=== PATIENT | male | born 1960 | race Caucasian/White ===

== ENCOUNTER 2024-02-03 08:58 | Inpatient (IN) ==
[2024-02-03 09:27] LABS: Hematocrit 49.4 % (38-53); Hemoglobin 16.2 g/dL (13.2-16.3); Mean Corpuscular Hgb Conc 32.7 g/dL (31-36); Mean Corpuscular Volume 91.6 fL (80-97); Mean Platelet Volume 8.3 fL (7.5-11.2); Platelet Count 352 10^3/uL (150-450); Red Blood Count 5.39 10^6/uL (4.06-5.63); Red Cell Distribution Width 14.2 % (12-17); White Blood Count 24.1 10^3/uL (3.6-10.2)
[2024-02-03 09:35] LABS: INR 1.23 (0.83-1.13)
[2024-02-03 10:03] LABS: Albumin 3.6 g/dL (3.2-5.2); Albumin/Globulin Ratio 1.2 (1-3); Calcium 8.5 mg/dL (8.6-10.3); Creatinine, Serum 0.7 mg/dL (0.67-1.17); Globulin 3.1 g/dL (2-4); Potassium 4.3 mmol/L (3.5-5.0); Total Bilirubin 0.9 mg/dL (0.2-1.0); Total Protein 6.7 g/dL (6.4-8.9); eGFR CKD-EPI 104.2 (>60)
[2024-02-03 10:26] LABS: ABS Basophils 0.1 10^3/uL (0.0-0.1); ABS Eosinophils 0.2 10^3/uL (0.0-0.5); ABS Lymphocytes 0.9 10^3/uL (1.0-4.8); ABS Monocytes 2.3 10^3/uL (0.0-1.1); ABS Neutrophils 20.5 10^3/uL (1.5-7.6); ABS Nucleated RBC 0.02 10^3/ul; Lymphocyte % 3.7 %; Nucleated Red Blood Cells % 0.1 %/100WBC (0.0-0.8)
[2024-02-03 10:54] LABS: High Sensitivity Troponin 1 Hr 6 pg/mL (<20)
[2024-02-03 11:20] LABS: Urine Appearance Clear; Urine Bilirubin Negative (Negative); Urine Blood Trace (Negative); Urine Color Light-Yellow; Urine Glucose 4+ (>=1000 mg/dL) (Negative); Urine Ketones 4+ (Negative); Urine Nitrite Negative (Negative); Urine Protein 1+ (>=30 mg/dL) (Negative); Urine Urobilinogen Negative (Negative)
[2024-02-03 11:41] LABS: Urine Bacteria Absent /HPF (Absent); Urine Red Blood Cell Trace(0-2/hpf) /HPF (0-Trace); Urine White Blood Cell Absent /HPF (0-Trace)
[2024-02-03] MEDS: NS 0.9% 1000 ml BAG 1,000 ML IV ONE ×3 (11:58→13:51)
[2024-02-03 12:09] LABS: Venous Bicarbonate HCO3 17.6 mmol/L (24-28)
[2024-02-03 12:38] LABS: PSA Screen Ultra Sensitive 2.07 ng/mL (0-4.000)
[2024-02-03 12:41] LABS: TSH Ultra Thyroid Stim Horm 1.63 mcIU/mL (0.34-5.60)
[2024-02-03] MEDS: Iodixanol (CONTRAST) 320 MG/ML 100 ML SDV IV ONE (14:27)
[2024-02-03 14:31] LABS: C Reactive Protein 308.38 mg/L (<8.01)
[2024-02-03 15:52] LABS: Urine Benzodiazepine Screen None Detected (None Detect); Urine Cannabinoids Screen None Detected (None Detect); Urine Opiates Screen None Detected (None Detect)
[2024-02-03 16:38] LABS: PCO2 Arterial 22 mmHg (35-45); PO2 Arterial 82 mmHg (80-100)
[2024-02-03] MEDS: Piperacillin/Tazobac 3.375 BAG 3.375 GM/100 ML BAG IV ONE (17:34)
[2024-02-03] MEDS: Vancomycin 1,500 MG in NS 0.9% 250 ml 250 ML IVPB ONE (18:28)
[2024-02-03 18:53] LABS: Albumin 3.3 g/dL (3.2-5.2); Albumin/Globulin Ratio 1.3 (1-3); Calcium 7.9 mg/dL (8.6-10.3); Creatinine, Serum 0.68 mg/dL (0.67-1.17); Globulin 2.6 g/dL (2-4); Potassium 4.2 mmol/L (3.5-5.0); Total Bilirubin 0.7 mg/dL (0.2-1.0); Total Protein 5.9 g/dL (6.4-8.9); eGFR CKD-EPI 105.1 (>60)
[2024-02-03] MEDS ORDERED: Albuterol HFA INHALER 8 gm MDI INH PRN (22:45)
[2024-02-04] MEDS: Enoxaparin 40 MG/0.4 ML SYR SUBCUT SCH (02:46)
[2024-02-04 06:06] LABS: Hematocrit 46.7 % (38-53); Hemoglobin 15.3 g/dL (13.2-16.3); Mean Corpuscular Hemoglobin 30.4 pg (27-33); Mean Corpuscular Hgb Conc 32.8 g/dL (31-36); Mean Corpuscular Volume 92.9 fL (80-97); Mean Platelet Volume 8.4 fL (7.5-11.2); Platelet Count 372 10^3/uL (150-450); Red Blood Count 5.02 10^6/uL (4.06-5.63); Red Cell Distribution Width 14.2 % (12-17); White Blood Count 27.8 10^3/uL (3.6-10.2)
[2024-02-04 06:12] LABS: ABS Basophils 0.1 10^3/uL (0.0-0.1); ABS Eosinophils 0.2 10^3/uL (0.0-0.5); ABS Lymphocytes 0.9 10^3/uL (1.0-4.8); ABS Monocytes 2.6 10^3/uL (0.0-1.1); ABS Neutrophils 24.1 10^3/uL (1.5-7.6); ABS Nucleated RBC 0.02 10^3/ul; Eosinophil % 0.6 %; Lymphocyte % 3.3 %; Nucleated Red Blood Cells % 0.1 %/100WBC (0.0-0.8)
[2024-02-04] MEDS ORDERED: AMLODIPINE OLMESARTAN PO SCH (09:00)
[2024-02-04 09:27] LABS: Hematocrit 46.8 % (38-53); Hemoglobin 15.1 g/dL (13.2-16.3); Mean Corpuscular Hemoglobin 30.2 pg (27-33); Mean Corpuscular Hgb Conc 32.4 g/dL (31-36); Mean Corpuscular Volume 93.2 fL (80-97); Mean Platelet Volume 8.2 fL (7.5-11.2); Platelet Count 382 10^3/uL (150-450); Red Blood Count 5.02 10^6/uL (4.06-5.63); Red Cell Distribution Width 14.3 % (12-17); White Blood Count 29.3 10^3/uL (3.6-10.2)
[2024-02-04 10:11] LABS: ABS Basophils 0.1 10^3/uL (0.0-0.1); ABS Eosinophils 0.1 10^3/uL (0.0-0.5); ABS Monocytes 3.1 10^3/uL (0.0-1.1); ABS Neutrophils 25.1 10^3/uL (1.5-7.6); ABS Nucleated RBC 0.01 10^3/ul; Eosinophil % 0.3 %; Lymphocyte % 3.4 %; RBC Morphology Normal (Normal)
[2024-02-04 10:21] LABS: Calcium 8.1 mg/dL (8.6-10.3); Creatinine, Serum 0.77 mg/dL (0.67-1.17); Magnesium 2.2 mg/dL (1.9-2.7); Phosphorus 3.2 mg/dL (2.5-5.0); Potassium 4.3 mmol/L (3.5-5.0); eGFR CKD-EPI 101.2 (>60)
[2024-02-04] MEDS: NS 0.9% 1000 ml BAG 1,000 ML IV ONE (11:08)
[2024-02-04 11:17] LABS: PO2 Arterial 107 mmHg (80-100)
[2024-02-04 11:20] LABS: PCO2 Arterial <20 mmHg (35-45)
[2024-02-04] MEDS ORDERED: Dextrose 50% Syringe 50 ml 25 GM/50 ML SYRINGE IV PUSH PRN (11:54)
[2024-02-04] MEDS: D5W 1/2 NS 1000 ml BAG 1,000 ML IV SCH (13:11)
[2024-02-04] MEDS: Mometasone/Formoter 100/5 MDI INH SCH (13:14)
[2024-02-04] MEDS: Insulin Infusion 100unit/100mL 100 UNIT/100 ML BAG IV SCH (13:45)
[2024-02-04] MEDS: Piperacillin/Tazobac 3.375 BAG 3.375 GM/100 ML BAG IV ONE (13:48)
[2024-02-04] MEDS ORDERED: Vancomycin per Pharmacy 1 EA NOTE FOLLOW UP SCH (14:00)
[2024-02-04] MEDS ORDERED: Zosyn per Pharmacy NOTE FOLLOW UP SCH (14:00)
[2024-02-04] MEDS: Vancomycin 1,500 MG in NS 0.9% 250 ml 250 ML IVPB ONE (15:16)
[2024-02-04 18:08] LABS: Creatinine, Serum 0.81 mg/dL (0.67-1.17); Magnesium 2.2 mg/dL (1.9-2.7); Phosphorus 2.4 mg/dL (2.5-5.0); Potassium 3.9 mmol/L (3.5-5.0); eGFR CKD-EPI 99.7 (>60)
[2024-02-04] MEDS: ZOSYN 3.375 GM Q8H per EXTENDED INFUSION IV SCH (18:32)
[2024-02-04] MEDS: Potassium Phosphate IV 15 MMOL in NS 0.9% 250 ml 250 ML IVPB ONE (19:18)
[2024-02-05 04:01] LABS: Calcium 8.2 mg/dL (8.6-10.3); Creatinine, Serum 0.83 mg/dL (0.67-1.17); Magnesium 2.2 mg/dL (1.9-2.7); Phosphorus 3.4 mg/dL (2.5-5.0); Potassium 4.5 mmol/L (3.5-5.0)
[2024-02-05] MEDS ORDERED: Sodium Bicarbonate 8.4% SYR 50 ml SYRINGE IV ONE ×2 (04:11→11:12)
[2024-02-05] MEDS: Sodium Bicarbonate 8.4% VIAL 1 MEQ/ML 50 ml VIAL (50 meq) IV ONE ×2 (04:48→13:06)
[2024-02-05] MEDS: Vancomycin 1,250 MG in NS 0.9% 250 ml 250 ML IVPB SCH (05:21)
[2024-02-05 06:16] LABS: Urine Potassium Concentration 42.3 mmol/L
[2024-02-05] MEDS ORDERED: Dextrose 50% Syringe 50 ml 25 GM/50 ML SYRINGE IV PUSH PRN (07:56)
[2024-02-05 08:47] LABS: Urine Osmo 648 mOsm/kg (150-1150)
[2024-02-05 09:06] LABS: C Reactive Protein 369.25 mg/L (<8.01)
[2024-02-05 09:50] LABS: Urine Appearance Clear; Urine Bacteria 1+ /HPF (Absent); Urine Bilirubin Negative (Negative); Urine Blood 1+ (Negative); Urine Color Light-Yellow; Urine Glucose 4+ (>=1000 mg/dL) (Negative); Urine Granular Casts Present /LPF (Absent); Urine Ketones 4+ (Negative); Urine Nitrite Negative (Negative); Urine Protein 3+ (>=300 mg/dL) (Negative); Urine Red Blood Cell 1+(3-5/hpf) /HPF (0-Trace); Urine Squamous Epithelial Cell Present /HPF (Absent); Urine Urobilinogen Negative (Negative); Urine White Blood Cell Trace(0-5/hpf) /HPF (0-Trace)
[2024-02-05 09:55] LABS: Hematocrit 46.9 % (38-53); Hemoglobin 15.2 g/dL (13.2-16.3); Mean Corpuscular Hemoglobin 30.1 pg (27-33); Mean Corpuscular Hgb Conc 32.5 g/dL (31-36); Mean Corpuscular Volume 92.7 fL (80-97); Mean Platelet Volume 8.2 fL (7.5-11.2); Platelet Count 411 10^3/uL (150-450); Red Blood Count 5.06 10^6/uL (4.06-5.63); Red Cell Distribution Width 14.4 % (12-17); White Blood Count 29.7 10^3/uL (3.6-10.2)
[2024-02-05 10:49] LABS: Calcium (PTH Intact) 8.4 mg/dL (8.6-10.3)
[2024-02-05 10:52] LABS: ALT 15 U/L (7-52); AST 16 U/L (13-39); Albumin 2.9 g/dL (3.2-5.2); Alkaline Phosphatase 94 U/L (35-149); Anion Gap 23 mmol/L (2-16); Blood Urea Nitrogen 16 mg/dL (6-24); CO2 Carbon Dioxide 8 mmol/L (22-32); Calcium 8.3 mg/dL (8.6-10.3); Chloride 106 mmol/L (101-111); Creatinine, Serum 0.84 mg/dL (0.67-1.17); Glucose 183 mg/dL (70-100); Magnesium 2.3 mg/dL (1.9-2.7); Phosphorus 2.9 mg/dL (2.5-5.0); Potassium 4.4 mmol/L (3.5-5.0); Sodium 137 mmol/L (135-145); Total Bilirubin 0.6 mg/dL (0.2-1.0); Total Protein 5.9 g/dL (6.4-8.9); eGFR CKD-EPI 98.6 (>60)
[2024-02-05] MEDS: Sodium Bicarb 8.4% Vial 50 ML 150 MEQ in D5W 1000 ml BAG 850 ML IV SCH (11:19)
[2024-02-05 11:27] LABS: Salicylate < 2.50 mg/dL (<30)
[2024-02-05 11:53] LABS: ABS Basophils 0.2 10^3/uL (0.0-0.1); ABS Eosinophils 0.1 10^3/uL (0.0-0.5); ABS Lymphocytes 0.7 10^3/uL (1.0-4.8); ABS Monocytes 2.9 10^3/uL (0.0-1.1); ABS Neutrophils 25.8 10^3/uL (1.5-7.6); Eosinophil % 0.3 %; Lymphocyte % 2.5 %
[2024-02-05 13:10] LABS: Venous Bicarbonate HCO3 13.6 mmol/L (24-28)
[2024-02-05 13:14] LABS: Osmolality Serum 303 mOsm/kg (275-295)
[2024-02-05] MEDS: Insulin Infusion 100unit/100mL 100 UNIT/100 ML BAG IV SCH ×2 (13:36→19:48)
[2024-02-05 13:44] LABS: Anion Gap 14 mmol/L (2-16); Blood Urea Nitrogen 20 mg/dL (6-24); CO2 Carbon Dioxide 11 mmol/L (22-32); Chloride 110 mmol/L (101-111); Creatinine, Serum 0.81 mg/dL (0.67-1.17); Glucose 232 mg/dL (70-100); Sodium 135 mmol/L (135-145); eGFR CKD-EPI 99.7 (>60)
[2024-02-05 15:07] LABS: Venous Bicarbonate HCO3 17.4 mmol/L (24-28)
[2024-02-05] MEDS: D5LR 1000 ml BAG 1,000 ML IV SCH (15:58)
[2024-02-05 17:01] LABS: Anaplasma phagocytophilum Negative (Negative); B. miyamotoi PCR, B Negative (Negative); Babesia divergens/MO-1 Negative (Negative); Babesia ducani Negative (Negative); Ehrlichia chaffeensis Negative (Negative); Ehrlichia ewingii/canis Negative (Negative); Ehrlichia muris eauclairensis Negative (Negative)
[2024-02-05 17:02] LABS: Venous Bicarbonate HCO3 19.4 mmol/L (24-28)
[2024-02-05 17:36] LABS: Calcium 8.2 mg/dL (8.6-10.3); Creatinine, Serum 0.72 mg/dL (0.67-1.17); Potassium 3.3 mmol/L (3.5-5.0); eGFR CKD-EPI 103.3 (>60)
[2024-02-05] MEDS: Iodixanol (CONTRAST) 320 MG/ML 100 ML SDV IV ONE ×2 (18:24→18:50)
[2024-02-05] MEDS: KCL 20 MEQ/100 ML IVPREMIX 20 MEQ/100 ML BAG IV SCH (23:05)
[2024-02-05 23:23] LABS: Calcium 7.3 mg/dL (8.6-10.3); Creatinine, Serum 0.64 mg/dL (0.67-1.17); Potassium 3.1 mmol/L (3.5-5.0)
[2024-02-06] MEDS: Vancomycin Trough Check NOTE FOLLOW UP ONE (05:45)
[2024-02-06] MEDS: KCL 20 MEQ/100 ML IVPREMIX 20 MEQ/100 ML BAG ONE (06:50)
[2024-02-06 08:54] LABS: Calcium 7.2 mg/dL (8.6-10.3); Creatinine, Serum 0.61 mg/dL (0.67-1.17); Magnesium 1.8 mg/dL (1.9-2.7); Potassium 3.3 mmol/L (3.5-5.0); eGFR CKD-EPI 108.6 (>60)
[2024-02-06 09:03] LABS: Hematocrit 38.8 % (38-53); Mean Corpuscular Hemoglobin 30.3 pg (27-33); Mean Corpuscular Hgb Conc 33.6 g/dL (31-36); Mean Corpuscular Volume 90.1 fL (80-97); Mean Platelet Volume 8.3 fL (7.5-11.2); Platelet Count 344 10^3/uL (150-450); Red Cell Distribution Width 14.2 % (12-17); White Blood Count 22.2 10^3/uL (3.6-10.2)
[2024-02-06 09:09] LABS: Phosphorus 1.3 mg/dL (2.5-5.0)
[2024-02-06] MEDS: Insulin GLARGINE 100 un/ml 10 ml VIAL SUBCUT SCH (09:30)
[2024-02-06 09:52] LABS: ABS Basophils 0.1 10^3/uL (0.0-0.1); ABS Eosinophils 0.5 10^3/uL (0.0-0.5); ABS Lymphocytes 0.6 10^3/uL (1.0-4.8); Eosinophil % 2.2 %; Lymphocyte % 2.8 %
[2024-02-06] MEDS ORDERED: Dextrose 50% Syringe 50 ml 25 GM/50 ML SYRINGE IV PUSH PRN ×2 (11:45→17:55)
[2024-02-06 11:57] LABS: Hematocrit 40.8 % (38-53); Hemoglobin 13.8 g/dL (13.2-16.3); Mean Corpuscular Hemoglobin 30.5 pg (27-33); Mean Corpuscular Hgb Conc 33.8 g/dL (31-36); Mean Corpuscular Volume 90.3 fL (80-97); Mean Platelet Volume 7.8 fL (7.5-11.2); Platelet Count 338 10^3/uL (150-450); Red Blood Count 4.52 10^6/uL (4.06-5.63); White Blood Count 24.8 10^3/uL (3.6-10.2)
[2024-02-06 12:07] LABS: ABS Basophils 0.1 10^3/uL (0.0-0.1); ABS Eosinophils 0.6 10^3/uL (0.0-0.5); ABS Lymphocytes 0.6 10^3/uL (1.0-4.8); ABS Monocytes 3.3 10^3/uL (0.0-1.1); ABS Neutrophils 20.2 10^3/uL (1.5-7.6); ABS Nucleated RBC 0.01 10^3/ul; Eosinophil % 2.5 %; Lymphocyte % 2.5 %
[2024-02-06 12:36] LABS: Calcium 7.5 mg/dL (8.6-10.3); Creatinine, Serum 0.58 mg/dL (0.67-1.17); Phosphorus 1.1 mg/dL (2.5-5.0); Potassium 3.3 mmol/L (3.5-5.0); eGFR CKD-EPI 110.3 (>60)
[2024-02-06] MEDS: Vancomycin 1,250 MG in NS 0.9% 250 ml 250 ML IVPB SCH (17:14)
[2024-02-06 17:15] LABS: Albumin 2.1 g/dL (3.2-5.2); Albumin/Globulin Ratio 0.9 (1-3); Calcium 7.5 mg/dL (8.6-10.3); Creatinine, Serum 0.58 mg/dL (0.67-1.17); Globulin 2.4 g/dL (2-4); Phosphorus 1.5 mg/dL (2.5-5.0); Potassium 3.3 mmol/L (3.5-5.0); Total Bilirubin 0.6 mg/dL (0.2-1.0); Total Protein 4.5 g/dL (6.4-8.9); eGFR CKD-EPI 110.3 (>60)
[2024-02-06] MEDS: Potassium Phosphate IV 15 MMOL in NS 0.9% 250 ml 250 ML IVPB ONE (17:38)
[2024-02-06] MEDS: Enoxaparin 40 MG/0.4 ML SYR SUBCUT SCH (20:35)
[2024-02-06] MEDS: Potassium Acid Phos 500 mg TAB PO SCH (20:42)
[2024-02-07 05:10] LABS: Hematocrit 41.1 % (38-53); Hemoglobin 13.6 g/dL (13.2-16.3); Mean Corpuscular Hemoglobin 29.9 pg (27-33); Mean Corpuscular Hgb Conc 33.1 g/dL (31-36); Mean Corpuscular Volume 90.4 fL (80-97); Mean Platelet Volume 7.9 fL (7.5-11.2); Platelet Count 339 10^3/uL (150-450); Red Blood Count 4.54 10^6/uL (4.06-5.63); Red Cell Distribution Width 13.9 % (12-17); White Blood Count 22.9 10^3/uL (3.6-10.2)
[2024-02-07 05:18] LABS: ABS Basophils 0.2 10^3/uL (0.0-0.1); ABS Eosinophils 0.7 10^3/uL (0.0-0.5); ABS Lymphocytes 0.9 10^3/uL (1.0-4.8); ABS Monocytes 2.9 10^3/uL (0.0-1.1); ABS Neutrophils 18.2 10^3/uL (1.5-7.6); Eosinophil % 3.2 %; Lymphocyte % 3.9 %
[2024-02-07 06:42] LABS: Albumin 2.1 g/dL (3.2-5.2); Albumin/Globulin Ratio 0.9 (1-3); Calcium 7.6 mg/dL (8.6-10.3); Creatinine, Serum 0.61 mg/dL (0.67-1.17); Globulin 2.3 g/dL (2-4); Phosphorus 2.5 mg/dL (2.5-5.0); Potassium 3.4 mmol/L (3.5-5.0); Total Bilirubin 0.5 mg/dL (0.2-1.0); Total Protein 4.4 g/dL (6.4-8.9); eGFR CKD-EPI 108.6 (>60)
[2024-02-07] MEDS: Vancomycin Trough Check NOTE FOLLOW UP ONE (08:48)
[2024-02-07 09:39] LABS: Urine Appearance No Cx Clear (Clear); Urine Bacteria No Culture Absent /HPF (Absent); Urine Bilirubin No Culture Negative (Negative); Urine Blood No Culture 1+ (Negative); Urine Color No Culture Light-Yellow; Urine Glucose No Culture 4+ (>=1000 mg/dL) (Negative); Urine Ketones No Culture 4+ (Negative); Urine Leukocytes No Culture Negative Leu/uL (Negative); Urine Nitrite No Culture Negative (Negative); Urine Protein No Culture 2+ (>=100 mg/dL) (Negative); Urine Red Blood Cell No Cult Trace(0-2/hpf) /HPF (0-Trace); Urine Urobilinogen No Cx Negative (Negative); Urine White Blood Cell No Cult Trace(0-5/hpf) /HPF (0-Trace); Urine pH No Culture 5.5 (5.0-8.0)
[2024-02-07 12:51] LABS: Calcium 7.9 mg/dL (8.6-10.3); Creatinine, Serum 0.63 mg/dL (0.67-1.17); Potassium 3.4 mmol/L (3.5-5.0); eGFR CKD-EPI 107.5 (>60)
[2024-02-07] MEDS ORDERED: D5LR 20 MEQ KCL 1000 ml BAG 1,000 ML IV SCH (15:00)
[2024-02-07] MEDS ORDERED: Insulin Infusion 100unit/100mL 100 UNIT/100 ML BAG IV SCH (15:00)
[2024-02-07 21:19] LABS: Calcium 7.8 mg/dL (8.6-10.3); Creatinine, Serum 0.6 mg/dL (0.67-1.17); Potassium 3.1 mmol/L (3.5-5.0); eGFR CKD-EPI 109.1 (>60)
[2024-02-08 05:01] LABS: Hematocrit 38.6 % (38-53); Hemoglobin 13.2 g/dL (13.2-16.3); Mean Corpuscular Hemoglobin 30.7 pg (27-33); Mean Corpuscular Hgb Conc 34.3 g/dL (31-36); Mean Corpuscular Volume 89.5 fL (80-97); Mean Platelet Volume 8.2 fL (7.5-11.2); Platelet Count 334 10^3/uL (150-450); Red Blood Count 4.31 10^6/uL (4.06-5.63); Red Cell Distribution Width 14.1 % (12-17); White Blood Count 25.9 10^3/uL (3.6-10.2)
[2024-02-08 05:06] LABS: ABS Lymphocytes 0.9 10^3/uL (1.0-4.8); ABS Monocytes 3.5 10^3/uL (0.0-1.1); ABS Neutrophils 20.4 10^3/uL (1.5-7.6); Lymphocyte % 3.5 %
[2024-02-08 05:39] LABS: Albumin 2.1 g/dL (3.2-5.2); Albumin/Globulin Ratio 0.9 (1-3); Calcium 7.6 mg/dL (8.6-10.3); Creatinine, Serum 0.6 mg/dL (0.67-1.17); Globulin 2.4 g/dL (2-4); Phosphorus 2.1 mg/dL (2.5-5.0); Potassium 3.2 mmol/L (3.5-5.0); Total Bilirubin 0.5 mg/dL (0.2-1.0); Total Protein 4.5 g/dL (6.4-8.9); eGFR CKD-EPI 109.1 (>60)
[2024-02-08] MEDS: Potassium & Sodium Phos 250 mg = 1 PACKET PO SCH (08:41)
[2024-02-08] MEDS: Potassium Chlor 20 meq TAB.ER PO SCH (08:42)
[2024-02-08 11:11] LABS: Urine Appearance Clear; Urine Bacteria Absent /HPF (Absent); Urine Bilirubin Negative (Negative); Urine Blood 1+ (Negative); Urine Color Light-Yellow; Urine Glucose 4+ (>=1000 mg/dL) (Negative); Urine Ketones 2+ (Negative); Urine Nitrite Negative (Negative); Urine Protein 1+ (>=30 mg/dL) (Negative); Urine Red Blood Cell 1+(3-5/hpf) /HPF (0-Trace); Urine Urobilinogen Negative (Negative); Urine White Blood Cell Trace(0-5/hpf) /HPF (0-Trace); Urine pH 5.5 (5.0-8.0)
[2024-02-08] MEDS: Calcium Carb (TUMS) 500 mg CHEW TAB PO PRN (17:29)
[2024-02-09 04:59] LABS: Urine Appearance No Cx Clear (Clear); Urine Bilirubin No Culture Negative (Negative); Urine Blood No Culture 1+ (Negative); Urine Color No Culture Light-Yellow; Urine Glucose No Culture 3+ (>=300 mg/dL) (Negative); Urine Ketones No Culture 1+ (Negative); Urine Leukocytes No Culture Negative Leu/uL (Negative); Urine Nitrite No Culture Negative (Negative); Urine Protein No Culture 2+ (>=100 mg/dL) (Negative); Urine Urobilinogen No Cx Negative (Negative)
[2024-02-09 05:00] LABS: Hematocrit 37.5 % (38-53); Hemoglobin 12.4 g/dL (13.2-16.3); Mean Corpuscular Hemoglobin 29.8 pg (27-33); Mean Corpuscular Hgb Conc 32.9 g/dL (31-36); Mean Corpuscular Volume 90.6 fL (80-97); Mean Platelet Volume 8.3 fL (7.5-11.2); Platelet Count 320 10^3/uL (150-450); Red Blood Count 4.14 10^6/uL (4.06-5.63); Red Cell Distribution Width 14.4 % (12-17); White Blood Count 28.4 10^3/uL (3.6-10.2)
[2024-02-09 05:12] LABS: ABS Basophils 0.1 10^3/uL (0.0-0.1); ABS Eosinophils 1.3 10^3/uL (0.0-0.5); ABS Lymphocytes 1.2 10^3/uL (1.0-4.8); ABS Monocytes 3.6 10^3/uL (0.0-1.1); ABS Neutrophils 22.3 10^3/uL (1.5-7.6); Eosinophil % 4.4 %; Lymphocyte % 4.1 %
[2024-02-09 05:27] LABS: Albumin 2.1 g/dL (3.2-5.2); Albumin/Globulin Ratio 0.9 (1-3); Calcium 7.6 mg/dL (8.6-10.3); Creatinine, Serum 0.68 mg/dL (0.67-1.17); Globulin 2.3 g/dL (2-4); Phosphorus 2.6 mg/dL (2.5-5.0); Potassium 3.3 mmol/L (3.5-5.0); Total Bilirubin 0.4 mg/dL (0.2-1.0); Total Protein 4.4 g/dL (6.4-8.9); eGFR CKD-EPI 105.1 (>60)
[2024-02-09 05:56] LABS: Ur Squamous Epithelial No Cx Present /HPF (Absent); Urine Bacteria No Culture Absent /HPF (Absent); Urine RBC Casts No Culture Present /LPF (Absent); Urine Red Blood Cell No Cult 1+(3-5/hpf) /HPF (0-Trace); Urine White Blood Cell No Cult Trace(0-5/hpf) /HPF (0-Trace)
[2024-02-09 08:17] VITALS: BP 145/90
== END 2024-02-09 09:46 | disposition home or self-care (01) | DRG 638 ==
LOC: EDHOLD 08:58 → ED 08:58 → SUATTDRO 19:58 → OBSVTOIN 19:58 → ICU 02-04 12:28
PROVIDERS: ADMIT Internal Medicine; ATTEND Student in an Organized Health Care Education/Training Program